=== PATIENT | male | born 1985 | race American Indian/Alaskan Native ===

== ENCOUNTER 2022-04-08 11:05 | Outpatient (CLI) | payer OTHER ==
--- NOTE | 2022-04-08 13:45 | XRay Report ---
BILATERAL HIPS 3 VIEWS INDICATION: Bilateral hip pain. COMPARISON: None. IMPRESSION: No acute osseous or soft tissue abnormality. Mild osteoarthritic changes are identifi ed at the left hip. No significant degenerative changes at the right hip. BILATERAL KNEES 3 VIEWS INDICATION: Bilateral knee pain. COMPARISON: None. IMPRESSION: No acute osseous or soft tissue abnormality. There are mild osteoarthritic changes in the left knee. No significant degenerative changes in the right knee. There is been previous interna l fixation of the left tibia with an intramedullary marianna which is partially imaged. BILATERAL HANDS 3 VIEWS INDICATION: BILATERAL HAND PAIN. COMPARISON: None. IMPRESSION: No osseous abnormality or joint pathology is detected. The soft tissues are unremarkabl e. Signer Name: Valdez Meehan Jr, MD Signed: 04/08/2022 1:41 PM Workstation Name: [id number]
== END 2022-04-08 11:06 | disposition home or self-care (01) ==
LOC: XRAY 11:05
PROVIDERS: ATTEND Internal Medicine
DX: M17.12 Unilateral primary osteoarthritis, left knee (principal); M16.12 Unilateral primary osteoarthritis, left hip; M79.642 Pain in left hand; M79.641 Pain in right hand
CPT/HCPCS: 72190